=== PATIENT | female | born 1995 | race Caucasian/White ===

== ENCOUNTER 2022-03-03 21:40 | Inpatient (IN) | payer OTHER ==
[~2022-03-03] VITALS: Ht 149.9 cm; Wt 97.5 kg
[~2022-03-03 21:40] MED LIST: ERGO400C MT; FERR325T23 MT; PREN1TAB78 MT
[2022-03-04] MEDS ORDERED: LIDOCAINE HCL 1% 20ML VIAL (Pyxis) INJ INFIL SCH
[2022-03-04] MEDS ORDERED: CARBOPROST TROMETHAMINE 250 MCG/ML AMPUL IM PRN
[2022-03-04] MEDS ORDERED: BUTORPHANOL TARTRATE 2 MG/ML VIAL IV PRN
[2022-03-04] MEDS ORDERED: NALOXONE HCL 0.4 MG/ML 1ML VIAL IM PRN
[2022-03-04] MEDS ORDERED: MISOPROSTOL 100MCG TABLET VG SCH
[2022-03-04] MEDS ORDERED: METHYLERGONOVINE MALEATE 0.2 MG/ML IM PRN
[2022-03-04] MEDS: LACTATED RINGERS 1,000 ML IV SCH ×2 (00:44→04:45)
[2022-03-04] MEDS: DOCUSATE SODIUM 100MG CAPSULE PO SCH (02:03)
[2022-03-04] MEDS: SIMETHICONE 80MG TABLET CHEW PO SCH ×4 (02:04→16:30)
[2022-03-04] MEDS: MAGNESIUM/ALUMINUM HYDROXIDE/SIMETHICONE 30ML UDC PO SCH ×4 (02:04→16:30)
[2022-03-04 02:16] LABS: BASOPHILS % 0.3 % (0.0-2.0); EOSINOPHILS % 0.3 % (0.0-5.0); HEMATOCRIT. 38.5 % (36.0-48.0); HEMOGLOBIN. 12.9 g/dL (12.0-16.0); LYMPHOCYTES % 26.4 % (20.0-50.0); MEAN CORPUSCULAR HEMOGLOBIN 30.5 pg (28.0-32.0); MEAN CORPUSCULAR VOLUME 91.5 fL (81.0-99.0); MEAN PLATELET VOLUME 8.3 fl (7.4-10.4); PLATELET 253 x1000/uL (130-400); RED BLOOD CELL COUNT 4.21 mill/uL (4.2-5.4); RED CELL DISTRIBUTION WIDTH 15.9 % (11.6-14.6)
[2022-03-04 02:23] LABS: INR 0.9; PARTIAL THROMBOPLASTIN TIME 26.2 sec (23.4-31.0); PROTHROMBIN TIME 9.7 sec (9.6-11.0)
[2022-03-04 02:49] LABS: HEPATITIS B SURFACE ANTIGEN NEGATIVE
[2022-03-04] MEDS ORDERED: ROPIVACAINE HCL/PF EPIDURAL 200 ML EPI ONE (02:50)
[2022-03-04] MEDS ORDERED: ROPIVACAINE HCL/PF EPIDURAL 200 ML EPI SCH (03:00)
[2022-03-04] MEDS ORDERED: FENTANYL CITRATE/PF 50MCG/ML 2ML VIAL ONE (03:11)
[2022-03-04] MEDS ORDERED: HEMORRHOIDAL SUPP PR PRN (04:45)
[2022-03-04] MEDS ORDERED: RHO(D) IMMUNE GLOBULIN 300 MCG/SYR IM PRN (04:45)
[2022-03-04] MEDS ORDERED: OXYCODONE HCL/ACETAMINOPHEN 5/325MG TABLET PO PRN (04:45)
[2022-03-04] MEDS ORDERED: MAGNESIUM 4 G PREMIX 100 ML IV ONE (04:45)
[2022-03-04] MEDS ORDERED: OXYTOCIN 30 UNITS/500ML NS PMX 500 ML IV SCH ×2 (04:45)
[2022-03-04] MEDS ORDERED: BISACODYL 10MG SUPP PR PRN (04:45)
[2022-03-04] MEDS ORDERED: BENZOCAINE/LANOLIN/ALOE VERA SPRAY TOP PRN (04:45)
[2022-03-04] MEDS ORDERED: DIPHENHYDRAMINE 25MG CAPSULE PO PRN (04:45)
[2022-03-04] MEDS ORDERED: GLYCERIN/WITCH HAZEL LEAF MEDICATED PAD TOP PRN (04:45)
[2022-03-04] MEDS ORDERED: IBUPROFEN 400MG TABLET PO PRN (04:45)
[2022-03-04] MEDS ORDERED: LANOLIN OINT 7GM TUBE TOP PRN (04:45)
[2022-03-04] MEDS: IBUPROFEN 800MG TABLET PO PRN ×2 (05:21→15:42)
[2022-03-04 05:38] LABS: CLARITY URINE CLEAR (CLEAR); COLOR URINE YELLOW (YELLOW); KETONES URINE 2+ (NEGATIVE); LEUKOCYTE ESTERASE URINE TRACE (NEGATIVE); NITRITE URINE NEGATIVE (NEGATIVE); OCCULT BLOOD URINE 3+ (NEGATIVE); PROTEIN URINE 1+ (NEGATIVE); SPECIFIC GRAVITY URINE 1.022 (1.005-1.030); UROBILINOGEN URINE 0.2 E.U./dL (0.2-1.0)
[2022-03-04 05:50] LABS: *AMPHETAMINES SCREEN URINE NEGATIVE (NEGATIVE); *BARBITURATES SCREEN URINE NEGATIVE (NEGATIVE); *BENZODIAZEPINES SCREEN URINE NEGATIVE (NEGATIVE); *COCAINE SCREEN URINE NEGATIVE (NEGATIVE); CANNABINOID URINE SCREEN NEGATIVE (NEGATIVE); METHADONE URINE SCREEN NEGATIVE (NEGATIVE); OPIATES URINE SCREEN NEGATIVE (NEGATIVE); PHENCYCLIDINE URINE SCREEN NEGATIVE (NEGATIVE)
[2022-03-04 08:45] VITALS: BP 100/62
[2022-03-04] MEDS ORDERED: NALOXONE HCL 0.4MG/ML VIAL IV PRN (09:30)
[2022-03-04] MEDS: PRENATAL VIT/FE FUMARATE/FA TABLET PO SCH (15:42)
[2022-03-04 16:00] VITALS: BP 115/73
[2022-03-04 20:00] VITALS: BP 114/66
[2022-03-05] MEDS: IBUPROFEN 800MG TABLET PO PRN ×2 (02:05→21:50)
[2022-03-05 04:00] VITALS: BP 118/70
[2022-03-05] MEDS: MAGNESIUM/ALUMINUM HYDROXIDE/SIMETHICONE 30ML UDC PO SCH ×4 (07:30→21:51)
[2022-03-05] MEDS: FERROUS SULFATE 325MG TABLET PO SCH ×3 (07:30→17:07)
[2022-03-05 07:34] LABS: BASOPHILS % 0.3 % (0.0-2.0); EOSINOPHILS % 0.5 % (0.0-5.0); HEMATOCRIT. 29.2 % (36.0-48.0); HEMOGLOBIN. 10.1 g/dL (12.0-16.0); LYMPHOCYTES % 34.6 % (20.0-50.0); MEAN CORPUSCULAR HEMOGLOBIN 31.6 pg (28.0-32.0); MEAN CORPUSCULAR VOLUME 91.9 fL (81.0-99.0); MEAN PLATELET VOLUME 7.8 fl (7.4-10.4); MONOCYTES % 4.3 % (2.0-8.0); NEUTROPHILS % 60.3 % (40.0-76.0); PLATELET 207 x1000/uL (130-400); RED BLOOD CELL COUNT 3.18 mill/uL (4.2-5.4); RED CELL DISTRIBUTION WIDTH 16.2 % (11.6-14.6)
[2022-03-05] MEDS: SIMETHICONE 80MG TABLET CHEW PO SCH ×4 (07:59→21:50)
[2022-03-05 08:00] VITALS: BP 119/77
[2022-03-05] MEDS: PRENATAL VIT/FE FUMARATE/FA TABLET PO SCH (08:50)
[2022-03-05 20:00] VITALS: BP 128/80
[2022-03-05] MEDS: DOCUSATE SODIUM 100MG CAPSULE PO SCH (21:50)
[2022-03-06 04:00] VITALS: BP 117/70
[2022-03-06] MEDS: MAGNESIUM/ALUMINUM HYDROXIDE/SIMETHICONE 30ML UDC PO SCH (07:30)
[2022-03-06] MEDS: FERROUS SULFATE 325MG TABLET PO SCH (07:30)
[2022-03-06] MEDS: SIMETHICONE 80MG TABLET CHEW PO SCH (08:00)
[2022-03-06 08:15] VITALS: BP 125/86
[2022-03-06] MEDS: PRENATAL VIT/FE FUMARATE/FA TABLET PO SCH (08:23)
[2022-03-06] MEDS ORDERED: IBUP-2030 PO (09:57)
[2022-03-06] MEDS ORDERED: NORE0.3520 MT (09:58)
== END 2022-03-06 11:45 | disposition home or self-care (01) | DRG 560 ==
LOC: 8 EST LDRP 21:40 → OBSVTOIN 21:40 → 8EST 03-04 09:12
PROVIDERS: ADMIT Obstetrics & Gynecology; ATTEND Obstetrics & Gynecology
PROC: 10E0XZZ Delivery of Products of Conception, External Approach (ICD-10-PCS; principal; 2022-03-04)
PROC: 3E0R3BZ Introduction of Anesthetic Agent into Spinal Canal, Percutaneous Approach (ICD-10-PCS; 2022-03-04)
PROC: 00HU33Z Insertion of Infusion Device into Spinal Canal, Percutaneous Approach (ICD-10-PCS; 2022-03-04)
DX: O48.0 Post-term pregnancy (principal); Z37.0 Single live birth; D62 Acute posthemorrhagic anemia; O99.02 Anemia complicating childbirth; Z20.822 Contact with and (suspected) exposure to COVID-19; Z3A.40 40 weeks gestation of pregnancy
CPT/HCPCS: 36415; 76805; 76818; 80305; 81003; 85025; 86592; 86703; 86762; 86850; 86900; 87340; 87426; 99281; G0378; J0595; J2795; J3010; J3490; J7120; A4315; J2590